=== PATIENT | female | born 1985 | race Caucasian/White ===

== ENCOUNTER 2016-08-14 18:48 | Emergency (ER) | payer SELFPAY ==
[~2016-08-14] VITALS: Ht 170.2 cm; Wt 68.0 kg
[2016-08-14 18:50] VITALS: BP 137/63; PULSE 76; RESP 16; TEMP 98.1; O2SAT 98
== END 2016-08-14 21:22 | disposition left against medical advice (07) ==
LOC: NED 18:48
DX: N64.4 Mastodynia (principal)
CPT/HCPCS: 99281

== ENCOUNTER 2017-01-25 21:59 | Emergency (ER) | payer MEDICAID ==
[~2017-01-25] VITALS: Ht 170.2 cm; Wt 69.5 kg
[2017-01-25 22:00] VITALS: BP 105/61; PULSE 71; RESP 16; TEMP 98.3; O2SAT 99
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
[2017-01-25] MEDS ORDERED: METR-1 PO (23:32)
[2017-01-25] MEDS ORDERED: metroNIDAZOLE 500 MG TAB PO ONE (23:45)
[2017-01-25 23:50] VITALS: BP 109/54
[2017-01-26 04:20] LABS: CHLAMYDIA PCR NOT DETECTED (NOT DETECT); NEISSERIA PCR NOT DETECTED (NOT DETECT)
== END 2017-01-25 23:50 | disposition home or self-care (01) ==
LOC: PHED 21:59
DX: L81.0 Postinflammatory hyperpigmentation (principal); N76.0 Acute vaginitis
CPT/HCPCS: 87210; 87491; 87591; 99284

== ENCOUNTER → 2017-11-04 | Outpatient (CLI) | payer MEDICAID, OTHER ==
[~2017-11-04] MED LIST: METR-1 PO
== END ==
LOC: HPND 08:35
PROVIDERS: ATTEND Obstetrics & Gynecology
DX: Z36.3 Encounter for antenatal screening for malformations (principal); O99.332 Smoking (tobacco) complicating pregnancy, second trimester
CPT/HCPCS: 76811

== ENCOUNTER 2017-11-29 16:43 | Observation (INO) | payer MEDICAID ==
[2017-11-29] MEDS ORDERED: ONDANSETRON HCL 4 MG/2 ML VIAL (17:36)
[2017-11-29] MEDS: LACTATED RINGER'S 1000 ML INJ 1,000 ML IV (17:45)
[2017-11-29] MEDS: ONDANSETRON HCL 4 MG/2 ML VIAL IV (17:46)
[2017-11-29] MEDS: METOCLOPRAMIDE HCL 10 MG/2 ML VIAL IV PUSH (17:48)
[2017-11-29 18:07] LABS: HEMATOCRIT 34.9 % (35.0-46.0); MEAN CELL VOLUME 89.6 FL (80.0-100.0); MEAN CORPUSCULAR HEMOGLOBIN 30.7 PG (27.0-34.0); MEAN CORPUSCULAR HGB CONC 34.3 % (32.0-36.0); MEAN PLATELET VOLUME 8.2 FL (7.0-11.0); PLATELET COUNT 278 TH/MM3 (150-450); RED CELL DISTRIBUTION WIDTH 14.1 % (11.6-17.2); REVIEW FLAG FINAL; WHITE BLOOD COUNT 22.9 TH/MM3 (4.0-11.0)
[2017-11-29 18:35] LABS: ALBUMIN 3.6 GM/DL (3.4-5.0); ANION GAP 12 MEQ/L (5-15); AST (GOT) 11 U/L (15-37); BICARBONATE 21.9 MEQ/L (21.0-32.0); BLOOD UREA NITROGEN 6 MG/DL (7-18); CALCIUM 9.2 MG/DL (8.5-10.1); CHLORIDE 106 MEQ/L (98-107); CREATININE 0.59 MG/DL (0.50-1.00); GLOMERULAR FILTRATION RATE 120 ML/MIN (>89); GLUCOSE,RANDOM 118 MG/DL (74-106); POTASSIUM 3.1 MEQ/L (3.5-5.1); SODIUM (NA) 140 MEQ/L (136-145)
[2017-11-29 18:36] LABS: ALT (GPT) 13 U/L (10-53)
[2017-11-29 18:39] LABS: ALKALINE PHOSPHATASE 70 U/L (45-117); TOTAL BILIRUBIN ADULT 0.2 MG/DL (0.2-1.0); TOTAL PROTEIN 7.9 GM/DL (6.4-8.2)
[2017-11-29] MEDS ORDERED: POTASSIUM CHLORIDE IV (18:55)
[2017-11-29] MEDS ORDERED: [UNRECOGNIZED DRUG - OTHER] IV (18:55)
[2017-11-29] MEDS ORDERED: ZOLPIDEM TARTRATE 5 MG TAB PO (19:00)
[2017-11-29] MEDS: SUCRALFATE 1 GM TAB PO (19:00)
[2017-11-29 19:09] LABS: AMORPHOUS SEDIMENT, URINE RARE; BILIRUBIN, URINE NEG (NEG); BLOOD, URINE NEG (NEG); COMMENT (UR) CULT NOT INDICATED; CULTURE IF INDICATED CULT NOT INDICATED; GLUCOSE,URINE TRACE mg/dL (NEG); KETONE, URINE 150 mg/dL (NEG); MUCUS URINE MANY /lpf (OCC); NITRITE,URINE NEG (NEG); SQUAMOUS EPITHELIAL CELL URINE 7 /hpf (0-5); URINE COLOR YELLOW (YELLW/STRAW); URINE LEUKOCYTE ESTERASE NEG (NEG)
[2017-11-29 19:28] LABS: AMPHETAMINE, URINE NEG (NEG); BARBITURATES, URINE NEG (NEG); BENZODIAZEPINE,URINE NEG (NEG); CANNABINOIDS, URINE POS (NEG); COCAINE, URINE NEG (NEG)
[2017-11-29] MEDS: POTASSIUM CHLORIDE INJ 40 MEQ in LACTATED RINGER'S 1000 ML INJ 1,000 ML IV (20:29)
[2017-11-29] MEDS: SODIUM CHLORIDE 0.9% FLUSH 10 ML FLUSH IV FLUSH ×2 (20:30→21:45)
[2017-11-29] MEDS: RANITIDINE HCL SYRUP 150 MG/10 ML UDC PO (21:00)
[2017-11-29] MEDS: FAMOTIDINE 20 MG TAB PO (21:00)
[2017-11-29] MEDS: LORazepam 2 MG/ML VIAL IV (21:45)
[2017-11-29] MEDS: FAMOTIDINE 20 MG/2 ML VIAL IV (21:45)
[2017-11-30] MEDS: POTASSIUM CHLORIDE INJ 40 MEQ in LACTATED RINGER'S 1000 ML INJ 1,000 ML IV (00:27)
[2017-11-30] MEDS: ONDANSETRON HCL 4 MG/2 ML VIAL IV PUSH ×2 (01:39→08:57)
[2017-11-30] MEDS: PROCHLORPERAZINE INJ 10 MG/2 ML VIAL IV (01:46)
[2017-11-30] MEDS: POTASSIUM CHLORIDE INJ 20 MEQ in LACTATED RINGER'S 1000 ML INJ 1,000 ML IV (01:46)
[2017-11-30 05:49] LABS: AUTOMATED NEUTROPHIL # 12.1 TH/MM3 (1.8-7.7); BASOPHIL % 0.1 % (0.0-2.0); HEMATOCRIT 28.7 % (35.0-46.0); HEMO FLAGS DIFF FINAL; HEMOGLOBIN 9.8 GM/DL (11.6-15.3); LYMPH % 11.1 % (9.0-44.0); LYMPHOCYTE # 1.6 TH/MM3 (1.0-4.8); MEAN CELL VOLUME 89.3 FL (80.0-100.0); MEAN CORPUSCULAR HEMOGLOBIN 30.4 PG (27.0-34.0); MEAN CORPUSCULAR HGB CONC 34.1 % (32.0-36.0); MEAN PLATELET VOLUME 8.1 FL (7.0-11.0); MONO % 5.5 % (0.0-8.0); MONOCYTE # 0.8 TH/MM3 (0-0.9); NEUT % 83.3 % (16.0-70.0); PLATELET COUNT 213 TH/MM3 (150-450); RED BLOOD COUNT 3.22 MIL/MM3 (4.00-5.30); RED CELL DISTRIBUTION WIDTH 13.8 % (11.6-17.2); WHITE BLOOD COUNT 14.5 TH/MM3 (4.0-11.0)
[2017-11-30 06:18] LABS: ANION GAP 10 MEQ/L (5-15); BICARBONATE 22.1 MEQ/L (21.0-32.0); BLOOD UREA NITROGEN 4 MG/DL (7-18); CALCIUM 8.3 MG/DL (8.5-10.1); CHLORIDE 109 MEQ/L (98-107); CREATININE 0.44 MG/DL (0.50-1.00); GLOMERULAR FILTRATION RATE 168 ML/MIN (>89); GLUCOSE,RANDOM 91 MG/DL (74-106); POTASSIUM 3.4 MEQ/L (3.5-5.1); SODIUM (NA) 141 MEQ/L (136-145)
[2017-11-30] MEDS: SODIUM CHLORIDE 0.9% FLUSH 10 ML FLUSH IV FLUSH (08:38)
[2017-11-30] MEDS: FAMOTIDINE 20 MG TAB PO (08:38)
== END 2017-11-30 12:35 | disposition home or self-care (01) ==
LOC: HOBED 16:43 → H2EA 18:55
DX: O99.612 Diseases of the digestive system complicating pregnancy, second trimester (principal); A08.4 Viral intestinal infection, unspecified; O99.282 Endocrine, nutritional and metabolic diseases complicating pregnancy, second trimester; E87.6 Hypokalemia; O26.892 Other specified pregnancy related conditions, second trimester; E86.0 Dehydration; O99.322 Drug use complicating pregnancy, second trimester; F12.988 Cannabis use, unspecified with other cannabis-induced disorder; Z3A.22 22 weeks gestation of pregnancy
CPT/HCPCS: 80048; 80053; 80307; 81001; 85025; 85027; 96361; 96365; 96366; 96375; 96376; 99285-25

== ENCOUNTER 2017-12-01 10:25 | Observation (INO) | payer MEDICAID ==
[~2017-12-01] VITALS: Ht 170.2 cm; Wt 74.4 kg
[2017-12-01] VITALS (12 sets, daily range): BP systolic 131–151; BP diastolic 67–81; PULSE 64–99; RESP 16–18; TEMP 98.4–98.5
[~2017-12-01 10:25] MED LIST changes: -METR-1 PO; +ZOFR4TAB3 SL
[2017-12-01] MEDS ORDERED: PREN1TAB45 PO (10:44)
[2017-12-01] MEDS: SODIUM CHLORIDE 0.9% FLUSH 10 ML FLUSH IV FLUSH SCH ×2 (11:00→21:00)
[2017-12-01] MEDS ORDERED: SODIUM CHLORIDE 0.9% FLUSH 10 ML FLUSH IV FLUSH PRN (11:00)
[2017-12-01] MEDS ORDERED: ACETAMINOPHEN 325 MG TAB PO PRN (11:00)
[2017-12-01] MEDS ORDERED: DEXT 5%-NACL 0.9% 1000 ML INJ 1,000 ML IV ONE (11:30)
[2017-12-01] MEDS ORDERED: ONDANSETRON HCL 4 MG/2 ML VIAL IV PUSH ONE (11:45)
--- NOTE | 2017-12-01 11:57 | HHI.HP ---
History & Physical H&P HPI Chief Complaint Nausea and vomiting Date Seen: December 01, 2017 Travel History International Travel<30 Days: No Contact w/Intl Traveler<30Days: No Known Affected Area: No History of Present Illness HPI The patient is a 32 year old at 22/1 weeks gestation who presents to OB triage due to nausea and vomiting. She was recently admitted to antepartum here from 11/29 to 11/30 with similar issues and discharged home yesterday after tolerating a regular diet with improvement of her nausea and vomiting. She also had hypokalemia at that time due to her vomiting. She states she felt ok at home yesterday and did not have any nausea or vomiting, although her appetite was still decreased. She states she only ate a popsicle yesterday evening for her dinner. She states she woke up early this morning around 05:30 with nausea and since then has had multiple episodes of emesis appearing dark brown. She reports not eating anything thus far today. She does endorse subjective chills. Reports diffuse abdominal pain, dull in nature and persistent. Denies any sharp abdominal pain, cramps, diarrhea. She otherwise denies leakage of fluid or contractions. Endorses + movements. Para: 2 : 3 History Past Medical History Medical History: Denies Significant Hx Obstetric History Obstetric History Spontaneous vaginal delivery 2 Past Surgical History Narrative Surgical Appendectomy Facial reconstruction Family History Family History: Negative Social History Alcohol Use: No Tobacco Use: No Substance Abuse: Yes (Admits to smoking THC 3-5 times daily prior to , at least 2-3 times daily during her ) Allergies-Medications (Allergen,Severity, Reaction): Coded Allergies: promethazine (Unverified Allergy, Severe, SHAKES, 11/29/17) ketorolac (Unverified Adverse Reaction, Severe, SHAKES, 11/29/17) Home Meds Active Scripts Ondansetron Odt (Zofran Odt) 4 Mg Tab, 4 MG SL Q6HR Y for Nausea/Vomiting, #12 TAB 1 Refill Prov:Luther Sandhu MD R2 11/30/17 Reported Medications Vit,Calc76/Iron/Folic (Pnv 29-1 Tablet) 29 Mg Iron-1 Mg Tablet, 1 TAB PO DAILY 12/01/17 Discontinued Scripts Metronidazole (Flagyl) 500 Mg Tab, 500 MG PO TID for Infection for 7 Days, TAB 0 Refills Prov:Luisito Prater MD 01/25/17 Review of Systems General / Constitutional: Chills HENT: No: Headaches Respiratory: No: Cough, Short of Breath Gastrointestinal: Nausea, Vomiting, Abdominal Pain, Loss of Appetite, No: Diarrhea Genitourinary: No: Dysuria, Hematuria, Discharge, Vaginal Bleeding Physical Exam Narrative GENERAL: Well-nourished, well-developed patient. SKIN: Warm and dry. HEAD: Normocephalic and atraumatic. EYES: No scleral icterus. No injection or drainage. ENT: No nasal drainage noted. Mucous membranes pink. Airway patent. NECK: Supple, trachea midline. No JVD. CARDIOVASCULAR: Regular rate and rhythm without murmurs, gallops, or rubs. RESPIRATORY: Breath sounds equal bilaterally. No accessory muscle use. ABDOMEN/GI: Abdomen soft, non-tender, bowel sounds present, no rebound, no guarding Gravid to 22 weeks size GENITOURINARY: External Genitalia: [-] Cervix: [-] Dilatation: [-] Effacement: [-] Station: [-] Presentation: [-] Membranes: [-] Uterine Contractions: [-] FHT's: Category: [-] Baseline: 130s Reactive: [-] Variability: moderate Decels: none noted EXTREMITIES: No cyanosis or edema. BACK: Nontender without obvious deformity. No CVA tenderness. NEUROLOGICAL: Awake and alert. Motor and sensory grossly within normal limits. Normal speech. Data Data Vital Signs Reviewed: Yes [facility] Medical Record Reviewed: Yes Plan 32 year old at 22/1 weeks gestation being evaluated due to nausea and multiple episodes of vomiting. 1. Nausea and vomiting - Check labs to include cbc, cmp, mg, amylase and lipase, UA - Will give 1L bolus of D5-NS - Zofran 8 mg IV x1 now - Continue with Reglan 10 mg IV q6h makayla alternated with Zofran 4 mg IV q6h - Liquid diet for now - Monitor vitals q4h - Supplement electrolytes as needed 2. IUP - FHT reassuring, mod variability - No contractions. No reports of LOF or VB - FHTs q shift dw Luther Joy MD R2 December 01, 2017 11:57
[2017-12-01 12:30] LABS: AMORPHOUS SEDIMENT, URINE FEW; BACTERIA, URINE RARE /hpf; BILIRUBIN, URINE NEG (NEG); BLOOD, URINE NEG (NEG); GLUCOSE,URINE NEG (NEG); KETONE, URINE 150 mg/dL (NEG); MUCUS URINE MANY /lpf (OCC); NITRITE,URINE NEG (NEG); PH, URINE 7.5 (5.0-8.5); SQUAMOUS EPITHELIAL CELL URINE 4 /hpf (0-5); URINE COLOR YELLOW (YELLW/STRAW); URINE LEUKOCYTE ESTERASE NEG (NEG)
[2017-12-01 12:37] LABS: AUTOMATED NEUTROPHIL # 16.8 TH/MM3 (1.8-7.7); BASOPHIL % 0.2 % (0.0-2.0); HEMATOCRIT 33.9 % (35.0-46.0); HEMOGLOBIN 11.5 GM/DL (11.6-15.3); LYMPH % 5.7 % (9.0-44.0); LYMPHOCYTE # 1.1 TH/MM3 (1.0-4.8); MEAN CELL VOLUME 90.2 FL (80.0-100.0); MEAN CORPUSCULAR HEMOGLOBIN 30.6 PG (27.0-34.0); MEAN CORPUSCULAR HGB CONC 33.9 % (32.0-36.0); MEAN PLATELET VOLUME 8.7 FL (7.0-11.0); MONO % 2.5 % (0.0-8.0); MONOCYTE # 0.5 TH/MM3 (0-0.9); NEUT % 91.6 % (16.0-70.0); PLATELET COUNT 263 TH/MM3 (150-450); RED BLOOD COUNT 3.76 MIL/MM3 (4.00-5.30); WHITE BLOOD COUNT 18.4 TH/MM3 (4.0-11.0)
[2017-12-01] MEDS ORDERED: ONDANSETRON INJ 8 MG in DEXTROSE 5% IN WATER INJ 50 ML IV PUSH ONE ×2 (13:00)
[2017-12-01] MEDS ORDERED: THIAMINE HCL 200 MG/2 ML VIAL IM ONE (13:15)
[2017-12-01] MEDS: POTASSIUM CHLOR 10 MEQ PREMIX 100 ML IV SCH ×3 (13:22→15:59)
[2017-12-01 14:17] LABS: ALBUMIN 3.3 GM/DL (3.4-5.0); AST (GOT) 18 U/L (15-37); BICARBONATE 23.3 MEQ/L (21.0-32.0); BLOOD UREA NITROGEN 3 MG/DL (7-18); CALCIUM 8.5 MG/DL (8.5-10.1); CHLORIDE 104 MEQ/L (98-107); CREATININE 0.52 MG/DL (0.50-1.00); GLOMERULAR FILTRATION RATE 138 ML/MIN (>89); GLUCOSE,RANDOM 125 MG/DL (74-106); MAGNESIUM 1.8 MG/DL (1.5-2.5); SODIUM (NA) 139 MEQ/L (136-145)
[2017-12-01 14:18] LABS: ALT (GPT) 16 U/L (10-53)
[2017-12-01 14:20] LABS: ALKALINE PHOSPHATASE 64 U/L (45-117); TOTAL BILIRUBIN ADULT 0.3 MG/DL (0.2-1.0); TOTAL PROTEIN 7.3 GM/DL (6.4-8.2)
[2017-12-01] MEDS ORDERED: METOCLOPRAMIDE HCL 10 MG/2 ML VIAL IV PUSH SCH (14:45)
[2017-12-01] MEDS ORDERED: MAGNESIUM SULFATE 1 GM PREMIX 100 ML IV ONE (16:00)
[2017-12-01] MEDS ORDERED: THIAMINE INJ 100 MG in SODIUM CHLORIDE 0.9% INJ 100 ML IV ONE (17:00)
[2017-12-01] MEDS ORDERED: ZOLPIDEM TARTRATE 5 MG TAB PO PRN (17:15)
[2017-12-01] MEDS: ONDANSETRON HCL 4 MG/2 ML VIAL IV PUSH SCH ×2 (17:46→23:54)
[2017-12-01] MEDS: METOCLOPRAMIDE HCL 10 MG/2 ML VIAL IV PUSH SCH (21:00)
[2017-12-01] MEDS ORDERED: LORazepam 2 MG/ML VIAL IM ONE (21:50)
[2017-12-02] VITALS (8 sets, daily range): BP systolic 110–138; BP diastolic 47–74; PULSE 79–98; RESP 16–18; TEMP 98–98.7
[2017-12-02] MEDS ORDERED: LACTATED RINGER'S 1000 ML INJ 1,000 ML IV SCH (00:45)
[2017-12-02] MEDS: METOCLOPRAMIDE HCL 10 MG/2 ML VIAL IV PUSH SCH ×3 (03:11→15:00)
[2017-12-02] MEDS: ONDANSETRON HCL 4 MG/2 ML VIAL IV PUSH SCH ×2 (05:45→11:45)
[2017-12-02 06:27] LABS: BICARBONATE 23.2 MEQ/L (21.0-32.0); CALCIUM 7.9 MG/DL (8.5-10.1); CREATININE 0.43 MG/DL (0.50-1.00)
[2017-12-02] MEDS ORDERED: MULTIVIT/MIN/PREN/FOL AC/IRON PRENATAL TAB PO SCH (09:00)
[2017-12-02] MEDS: SODIUM CHLORIDE 0.9% FLUSH 10 ML FLUSH IV FLUSH SCH (09:00)
[2017-12-02] MEDS: diphenhydrAMINE HCL 50 MG/ML VIAL IV PUSH SCH ×2 (09:45→15:45)
[2017-12-02] MEDS ORDERED: CALCIUM GLUCONATE INJ 2 GM in SODIUM CHLORIDE 0.9% INJ 100 ML IV ONE (10:00)
[2017-12-02] MEDS: POTASSIUM CHLOR 10 MEQ PREMIX 100 ML IV SCH ×4 (11:00→15:00)
--- NOTE | 2017-12-02 11:03 | PD.OB.ANTE ---
Subjective Interval History No acute events overnight. Mother at bedside. Patient reports that she is doing a little better this morning. She reports that she is still little nauseated. She denies chest pain, shortness of breath, abdominal pain, and fevers. Antepartum ROS: Denies: New complaints, Loss of fluid, Vaginal bleeding, movement normal, Contractions, Other Objective Vital Signs Vital Signs Date Time Temp Pulse Resp B/P (MAP) Pulse Ox O2 Delivery O2 Flow Rate FiO2 12/02/17 09:57 98.7 88 18 132/57 (82) 12/02/17 00:00 98.0 18 12/01/17 23:56 81 140/67 (91) 12/01/17 21:00 144/67 (92) 12/01/17 21:00 78 12/01/17 20:55 81 18 151/81 (104) 12/01/17 20:55 98.5 12/01/17 16:53 99 131/69 (89) 12/01/17 16:52 98.4 16 12/01/17 11:20 69 12/01/17 11:15 70 12/01/17 11:10 67 12/01/17 11:05 64 12/01/17 11:00 68 Lab & Micro Results Test 12/01/17 12:10 12/01/17 13:33 12/02/17 04:35 White Blood Count 18.4 TH/MM3 Red Blood Count 3.76 MIL/MM3 Hemoglobin 11.5 GM/DL Hematocrit 33.9 % Mean Corpuscular Volume 90.2 FL Mean Corpuscular Hemoglobin 30.6 PG Mean Corpuscular Hemoglobin Concent 33.9 % Red Cell Distribution Width 14.0 % Platelet Count 263 TH/MM3 Mean Platelet Volume 8.7 FL Neutrophils (%) (Auto) 91.6 % Lymphocytes (%) (Auto) 5.7 % Monocytes (%) (Auto) 2.5 % Eosinophils (%) (Auto) 0.0 % Basophils (%) (Auto) 0.2 % Neutrophils # (Auto) 16.8 TH/MM3 Lymphocytes # (Auto) 1.1 TH/MM3 Monocytes # (Auto) 0.5 TH/MM3 Eosinophils # (Auto) 0.0 TH/MM3 Basophils # (Auto) 0.0 TH/MM3 CBC Comment DIFF FINAL Differential Comment Blood Urea Nitrogen 3 MG/DL 4 MG/DL Creatinine 0.52 MG/DL 0.43 MG/DL Random Glucose 125 MG/DL 86 MG/DL Total Protein 7.3 GM/DL Albumin 3.3 GM/DL Calcium Level 8.5 MG/DL 7.9 MG/DL Magnesium Level 1.8 MG/DL 2.0 MG/DL Alkaline Phosphatase 64 U/L Aspartate Amino Transf (AST/SGOT) 18 U/L Alanine Aminotransferase (ALT/SGPT) 16 U/L Total Bilirubin 0.3 MG/DL Sodium Level 139 MEQ/L 139 MEQ/L Potassium Level 3.1 MEQ/L 2.8 MEQ/L Chloride Level 104 MEQ/L 106 MEQ/L Carbon Dioxide Level 23.3 MEQ/L 23.2 MEQ/L Anion Gap 12 MEQ/L 10 MEQ/L Estimat Glomerular Filtration Rate 138 ML/MIN 172 ML/MIN Amylase Level 78 U/L Lipase 106 U/L Physical Exam GENERAL: Well-nourished, well-developed patient. CARDIOVASCULAR: Regular rate and rhythm without murmurs, gallops, or rubs. RESPIRATORY: Breath sounds equal bilaterally. No accessory muscle use. ABDOMEN/GI: Abdomen soft, non-tender. FHT's: 140s Via Doppler performed by nurse. EXTREMITIES: No cyanosis or edema, non-tender, without signs of DVT. Assessment and Plan Assessment and Plan 32 year old at 22/1 weeks gestation being evaluated due to nausea and multiple episodes of vomiting. 1. Nausea and vomiting -Potassium decreased from 3.1-2.8, replace with IV potassium chloride -Calcium decreased to 7.9 today, replace with 2 g IV calcium gluconate -Magnesium 2.0 -Continue with Reglan 10 mg IV q6h makayla alternated with Zofran 4 mg IV q6h -Add Benadryl 50 mg IV push q6hr and Thorazine 25mg IV push q5h -Repeat BMP tomorrow - Liquid diet for now - Monitor vitals q4h 2. IUP - heart tones 140s via Doppler performed by nurse - FHTs q shift sdw Mamie Reyes MD R1 December 02, 2017 11:03
[2017-12-02 23:59] LABS: HEMATOCRIT 28.1 % (35.0-46.0); HEMOGLOBIN 9.9 GM/DL (11.6-15.3); MEAN CELL VOLUME 89.9 FL (80.0-100.0); MEAN CORPUSCULAR HEMOGLOBIN 31.6 PG (27.0-34.0); MEAN CORPUSCULAR HGB CONC 35.1 % (32.0-36.0); MEAN PLATELET VOLUME 7.5 FL (7.0-11.0); PLATELET COUNT 189 TH/MM3 (150-450); RED BLOOD COUNT 3.13 MIL/MM3 (4.00-5.30); WHITE BLOOD COUNT 9.3 TH/MM3 (4.0-11.0)
[2017-12-03] VITALS (8 sets, daily range): BP systolic 129–135; BP diastolic 56–79; PULSE 82–107; RESP 14–18; TEMP 98.3
[2017-12-03] MEDS ORDERED: LACTATED RINGER S IV SCH (00:30)
[2017-12-03] MEDS ORDERED: POTASSIUM CHLORIDE IV SCH (00:30)
[2017-12-03 06:17] LABS: BICARBONATE 21.3 MEQ/L (21.0-32.0); CALCIUM 7.7 MG/DL (8.5-10.1); CREATININE 0.33 MG/DL (0.50-1.00)
--- NOTE | 2017-12-03 08:45 | PD.OB.ANTE ---
Subjective Interval History Patient seen and examined this morning. Afebrile, vitals stable. She reports continued nausea. She states she has not attempted progressing her diet due to her nausea. Antepartum ROS: Reports: movement normal, Denies: Loss of fluid, Vaginal bleeding Objective Vital Signs Vital Signs Date Time Temp Pulse Resp B/P (MAP) Pulse Ox O2 Delivery O2 Flow Rate FiO2 12/03/17 04:00 18 12/03/17 03:52 87 129/56 (80) 12/03/17 00:00 18 12/02/17 23:47 80 136/74 (94) 12/02/17 20:00 18 12/02/17 20:00 98.2 12/02/17 19:49 79 110/47 (68) 12/02/17 17:44 16 12/02/17 12:28 16 12/02/17 12:20 98 138/63 (88) 12/02/17 09:57 98.7 88 18 132/57 (82) Lab & Micro Results Test 12/02/17 23:44 12/03/17 04:59 White Blood Count 9.3 TH/MM3 Red Blood Count 3.13 MIL/MM3 Hemoglobin 9.9 GM/DL Hematocrit 28.1 % Mean Corpuscular Volume 89.9 FL Mean Corpuscular Hemoglobin 31.6 PG Mean Corpuscular Hemoglobin Concent 35.1 % Red Cell Distribution Width 14.0 % Platelet Count 189 TH/MM3 Mean Platelet Volume 7.5 FL Potassium Level 2.8 MEQ/L 3.3 MEQ/L Blood Urea Nitrogen 3 MG/DL Creatinine 0.33 MG/DL Random Glucose 74 MG/DL Calcium Level 7.7 MG/DL Sodium Level 139 MEQ/L Chloride Level 106 MEQ/L Carbon Dioxide Level 21.3 MEQ/L Anion Gap 12 MEQ/L Estimat Glomerular Filtration Rate 234 ML/MIN Physical Exam GENERAL: Well-nourished, well-developed patient. CARDIOVASCULAR: Regular rate and rhythm without murmurs, gallops, or rubs. RESPIRATORY: Breath sounds equal bilaterally. No accessory muscle use. ABDOMEN/GI: Abdomen soft, non-tender. FHT's: 152 via Doppler performed by nurse. EXTREMITIES: No cyanosis or edema, non-tender, without signs of DVT. Assessment and Plan Assessment and Plan 32 year old at 22/3 weeks gestation admitted to antepartum due to recurrent nausea, vomiting, dehydration, and hypokalemia. 1. Nausea and vomiting - Continue IV potassium chloride for K supplementation - Magnesium 2.0 - Patient started on methylprednisolone 16 mg po bid for additional three days then plan to taper down - Continue with Reglan 10 mg IV q6h makayla alternated with Zofran 4 mg IV q6h - Benadryl 50 mg IV push q6hr - Discontinue thorazine - Repeat BMP tomorrow - Trial regular diet, patient advised to trial very slowly as tolerated, discussed specific foods to attempt first - Monitor vitals q4h 2. IUP - heart tones 152s via Doppler performed by nurse - FHTs q shift sdw Luther Weeks MD R2 December 03, 2017 08:45
[2017-12-03] MEDS ORDERED: THIAMINE INJ 100 MG in SODIUM CHLORIDE 0.9% INJ 100 ML IV SCH (09:00)
[2017-12-03] MEDS: SODIUM CHLORIDE 0.9% FLUSH 10 ML FLUSH IV FLUSH SCH ×2 (09:00→19:43)
[2017-12-03] MEDS ORDERED: POTASSIUM CHLORIDE 25 MEQ EFFERVESCENT TAB PO ONE ×2 (09:30→14:30)
[2017-12-03] MEDS: ONDANSETRON ODT 4 MG TAB PO PRN ×3 (11:10→21:26)
[2017-12-03] MEDS ORDERED: PANTOPRAZOLE SOD 40 MG DELAYED RELEASE TAB PO SCH (12:00)
--- NOTE | 2017-12-03 12:50 | MB ---
cc: Bertrand Cavazos MD,Bertrand Smith MD, MD DATE: 12/03/2017 REASON FOR CONSULTATION: Nausea, vomiting. HISTORY OF PRESENT ILLNESS: Ms. Nick is a 32-year-old lady who is 22 weeks , basically presents with complaints of nausea, vomiting and inability to keep food down. She was here in the hospital about a week ago as well for similar complaints. At that time, she was managed conservatively, treated for hypokalemia and discharged. She admits to marijuana use. She says tried to smoke some marijuana yesterday to try to see if this helps with her nausea and vomiting, but it did not and her symptoms got worse, so she came to the hospital. She has no other complaints. There is no bleeding, no diarrhea, no abdominal pain. PAST MEDICAL HISTORY: None given. PAST SURGICAL HISTORY: Appendectomy, facial surgery. FAMILY HISTORY: Noncontributory. SOCIAL HISTORY: No tobacco, no alcohol. Admits to marijuana use 2 to 3 times daily. ALLERGIES: PROMETHAZINE AND KETOROLAC. CURRENT MEDICINES: Zofran IV steroids. REVIEW OF SYSTEMS: Except for nausea, no other complaints at this time. PHYSICAL EXAMINATION: GENERAL: Reveals a well-nourished lady in no apparent distress. VITAL SIGNS: Vitals are stable. HEAD AND NECK: Anicteric sclerae. CHEST: Bilateral air entry with rales. ABDOMEN: Soft, some tenderness in the right upper quadrant. No guarding, no rigidity. LICENSED INSURANCE AGENT: The exam is nonfocal. RECTAL: Deferred at this time. LABORATORY DATA: Reveal a hemoglobin of 9.9. Lipase 106. Liver function tests are normal. The patient is hypokalemic with a potassium of 3.3. IMPRESSION: Nausea, vomiting. RECOMMENDATIONS: Nausea and vomiting could be related to , could be related to Marijuana use. I have recommended an ultrasound of the gallbladder to rule out cholelithiasis. Add Prilosec 40 mg daily to her regimen. She is advised against using marijuana. Obviously, she is 22 weeks . This precludes any invasive testing at this time. This has been discussed with Dr. Shipley and Dr. Mira Solitario. We will follow. Thank you for this referral. MD DANAY Garvin , 12:21 PM , 12:49 PM
[2017-12-03] MEDS: PANTOPRAZOLE SOD 40 MG DELAYED RELEASE TAB PO SCH (16:47)
[2017-12-03] MEDS: MULTIVIT/MIN/PREN/FOL AC/IRON PRENATAL TAB PO SCH (16:47)
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
[2017-12-03] MEDS: LACTATED RINGER'S 1000 ML INJ 1,000 ML IV SCH (20:31)
[2017-12-04] MEDS ORDERED: AMMONIA AROMATIC INHALANT 0.33 ML ONE (01:01)
[2017-12-04 02:00] VITALS: RESP 14; TEMP 97.9
[2017-12-04] MEDS: ONDANSETRON ODT 4 MG TAB PO PRN (02:01)
[2017-12-04] MEDS: LACTATED RINGER'S 1000 ML INJ 1,000 ML IV SCH (04:34)
[2017-12-04 05:19] LABS: BICARBONATE 20.6 MEQ/L (21.0-32.0); CALCIUM 7.8 MG/DL (8.5-10.1); CREATININE 0.34 MG/DL (0.50-1.00)
[2017-12-04] MEDS ORDERED: ONDANSETRON ODT 4 MG TAB PO PRN (06:15)
[2017-12-04 06:38] VITALS: BP 141/72; PULSE 91
[2017-12-04] MEDS: SODIUM CHLORIDE 0.9% FLUSH 10 ML FLUSH IV FLUSH SCH (07:09)
[2017-12-04] MEDS: MULTIVIT/MIN/PREN/FOL AC/IRON PRENATAL TAB PO SCH (07:14)
--- NOTE | 2017-12-04 08:11 | PD.OB.ANTE ---
Subjective Diagnosis: (1) with 22 completed weeks gestation (2) Hyperemesis gravidarum with dehydration Interval History Patient seen and examined this morning. Afebrile, vitals stable. She reports nausea at 3am this morning and none since. She had vomiting with dinner last night, which was a turkey sandwich. Breakfast is pending this morning. Antepartum ROS: Reports: movement normal, Denies: New complaints, Loss of fluid, Vaginal bleeding, Contractions Objective Vital Signs Vital Signs Date Time Temp Pulse Resp B/P (MAP) Pulse Ox O2 Delivery O2 Flow Rate FiO2 12/04/17 06:38 91 141/72 (95) 12/04/17 02:00 97.9 12/04/17 02:00 14 12/03/17 20:22 98.3 14 12/03/17 20:19 82 132/79 (96) 12/03/17 14:05 107 132/61 (84) 12/03/17 10:00 16 12/03/17 09:44 89 135/64 (87) Lab & Micro Results Test 12/03/17 21:35 12/04/17 04:10 Urine Opiates Screen NEG Urine Barbiturates Screen NEG Urine Amphetamines Screen NEG Urine Benzodiazepines Screen NEG Urine Cocaine Screen NEG Urine Cannabinoids Screen POS Blood Urea Nitrogen 3 MG/DL Creatinine 0.34 MG/DL Random Glucose 82 MG/DL Calcium Level 7.8 MG/DL Sodium Level 137 MEQ/L Potassium Level 3.2 MEQ/L Chloride Level 104 MEQ/L Carbon Dioxide Level 20.6 MEQ/L Anion Gap 12 MEQ/L Estimat Glomerular Filtration Rate 226 ML/MIN Date/Time Source Procedure Growth Status 12/03/17 14:50 Other Herpes Simplex Virus Culture Pending Received Physical Exam GENERAL: Well-nourished, well-developed patient. CARDIOVASCULAR: Regular rate and rhythm without murmurs, gallops, or rubs. RESPIRATORY: Breath sounds equal bilaterally. No accessory muscle use. ABDOMEN/GI: Abdomen soft, non-tender. Normal bowel sounds. Nontender. Gravid uterus. FHT's: Dopplers performed by nurse 150s EXTREMITIES: No cyanosis or edema, non-tender, without signs of DVT. Assessment and Plan Assessment and Plan 32 year old at 22/4 weeks gestation admitted to antepartum due to recurrent nausea, vomiting, dehydration, and hypokalemia. 1. Nausea and vomiting - Continue IV potassium chloride for K supplementation - Magnesium 2.0 - Patient started on methylprednisolone 16 mg po bid for additional three days then plan to taper down - Continue with Reglan 10 mg IV q6h makayla alternated with Zofran 4 mg IV q6h - Benadryl 50 mg IV push q6hr - Discontinued thorazine - Repeat BMP showing K 3.2, replete with 30meq KCl this morning - Continue trial regular diet, patient advised to trial very slowly as tolerated , discussed specific foods to attempt first - Monitor vitals q4h - GI consulted: RUQ US ordered and wnl. Recommended and started Prilosec 40mg daily. Appreciate recs 2. IUP - heart tones 150s via Doppler performed by nurse - FHTs q shift Disposition: anticipate patient to go home today or tomorrow. Still having nausea and vomiting. wilda Irby,Cyndie Hahn MD R2 December 04, 2017 08:11
[2017-12-04] MEDS ORDERED: POTASSIUM CHLORIDE 10 MEQ CONTROLLED RELEASE TAB PO ONE (08:15)
[2017-12-04] MEDS ORDERED: ONDA4TAB7 PO (10:16)
[2017-12-04] MEDS ORDERED: PANT40TA3 PO (10:16)
[2017-12-04] MEDS ORDERED: [UNRECOGNIZED DRUG - CODE] PO (10:16)
[2017-12-04] MEDS ORDERED: METO10TA PO (10:20)
--- NOTE | 2017-12-04 10:20 | HHI.DCPOC ---
Discharge Care Plan Diagnosis: (1) with 22 completed weeks gestation (2) Hyperemesis gravidarum with dehydration Report Symptoms to Your Doctor -Temperature above 100.5 degrees -Redness, of incision or excessive or foul smelling drainage -Unusual pain or calf pain -Increased vaginal bleeding -Painful or difficulty urinating -Feelings of extreme sadness or anxiety after 2 weeks Goals to Promote Your Health * To prevent worsening of your condition and complications * To maintain your health at the optimal level Directions to Meet Your Goals Take your medications as prescribed Follow your dietary instruction Follow activity as directed Ensure plenty of rest for recovery Drink fluids for hydration Keep your appointments as scheduled Take your immunizations and boosters as scheduled If your symptoms worsen call your PCP, if no PCP go to Urgent Care Center or Emergency Room Smoking is Dangerous to Your Health. Avoid second hand smoke Call the 24-hour crisis hotline for domestic abuse at Cyndie Irby MD R2 December 04, 2017 10:20
[2017-12-04] MEDS: PANTOPRAZOLE SOD 40 MG DELAYED RELEASE TAB PO SCH (10:41)
== END 2017-12-04 11:11 | disposition home or self-care (01) ==
LOC: HOBED 10:25 → H2EA 11:39
PROVIDERS: ADMIT Obstetrics & Gynecology; ATTEND Obstetrics & Gynecology
DX: O21.1 Hyperemesis gravidarum with metabolic disturbance (principal); E86.0 Dehydration; O99.322 Drug use complicating pregnancy, second trimester; F12.90 Cannabis use, unspecified, uncomplicated; Z3A.22 22 weeks gestation of pregnancy
CPT/HCPCS: 76705; 76811; 80048; 80053; 80307; 81001; 82150; 83690; 83735; 84132; 85025; 85027; 87255; 96361; 96365; 96366; 96375; 96376; 99285; G0378; G0481; J0610; J2060; J2405; J2765; J3230; J3411; J3475; J3480; J7042; J7120; J7509

== ENCOUNTER → 2017-12-30 | Outpatient (CLI) | payer MEDICAID ==
[~2017-12-30] MED LIST changes: +METO10TA PO; +ONDA4TAB7 PO; +PANT40TA3 PO; +PREN1TAB45 PO; -ZOFR4TAB3 SL; +[UNRECOGNIZED DRUG - CODE] PO
== END ==
LOC: HPND 12:02
PROVIDERS: ATTEND Obstetrics & Gynecology
DX: O35.1XX0 Maternal care for (suspected) chromosomal abnormality in fetus, not applicable or unspecified (principal); O35.8XX0 Maternal care for other (suspected) fetal abnormality and damage, not applicable or unspecified; O99.89 Other specified diseases and conditions complicating pregnancy, childbirth and the puerperium
CPT/HCPCS: 76816

== ENCOUNTER 2018-04-12 05:12 | Inpatient (IN) ==
[2018-04-12] MEDS ORDERED: fentaNYL Citrate Inj 100 MCG/2 ML Ampul IV.PUSH PRN ×2 (06:10)
[2018-04-12] MEDS ORDERED: ceFAZolin Inj 2,000 MG in Sodium Chlor 0.9% Inj 80 ML IV.SIG ONE (06:10)
[2018-04-12] MEDS ORDERED: Sod Chloride 0.9% Inj 1,000 ML IV.CONT PRN (06:10)
[2018-04-12] MEDS ORDERED: Sodium Chlor 0.9% Inj 500 ML IV.SIG PRN (06:10)
[2018-04-12] MEDS ORDERED: Naloxone Inj 0.4 MG/ML Vial IV.PUSH PRN ×2 (06:10→18:17)
[2018-04-12] MEDS ORDERED: Oxytocin 30 Units/500ml Premix 30 UNITS/500 ML BAG IV.SIG ONE (06:10)
[2018-04-12] MEDS ORDERED: Citric Acid/Sodium Citrate Liq 30 ML UDC PO SCH (06:15)
--- NOTE | 2018-04-12 06:26 | P.HPOB ---
History of Present Illness Primary Care Physician: care at [facility] Chief Complaint: Presents for postdates induction of labor History of Present Illness: 32-year-old EDC 04/05/2018 EGA 40+ weeks presents for postdates induction of labor Weeks Gestation:: 40 Para: 2 : 4 - Inpatient Certification I certify that the inpatient services were ordered in accordance with Medicare regulations governing the order. This includes certification that hospital inpatient services are reasonable and necessary and in the case of services not specified as inpatient-only under 42 CFR 419.22(n), that they are appropriately provided as inpatient services in accordance to with the 2-midnight benchmark under 43 CFR 412.3(e) Estimated Total Length of Stay (Days): 3 Plans for Post Hospital Care: Home Review of Systems All other systems reviewed negative except as stated in HPI [facility] - Medical History Medical History: Medical History (Last Updated 04/12/18 @ 06:23 by Chery Bain MD) Chlamydia infection affecting HPV test positive Post-dates Tobacco use affecting , antepartum - Alcohol History How Often Do You Have a Drink Containing Alcohol: Never - Substance Use History Substance History: No History of Abuse - Travel History History of Recent Travel: No Medications and Allergies Active Medications: Active Medications Citric Acid/Sodium Citrate (Sodium Citrate/Citric Acid Liq) 30 ml PO [employer] [facility] Stop: 04/16/18 06:14 Fentanyl Citrate (Fentanyl Inj) 50 mcg IV.PUSH Q1H PRN PRN Reason: Pain Scale 3 - 5 Fentanyl Citrate (Fentanyl Inj) 100 mcg IV.PUSH Q1H PRN PRN Reason: PAIN SCALE 6 TO 10 Cefazolin Sodium 2,000 mg/ (Sodium Chloride) 100 mls @ 200 mls/hr IV.SIG Q8HR ONE Stop: 04/12/18 06:39 Lactated Ringer's (Lr 1000 Ml Inj) 1,000 mls @ 125 mls/hr IV.CONT .Q8H [facility] Lactated Ringer's (Lr 1000 Ml Inj) 1,000 mls @ 3,000 mls/hr IV.SIG UNSCH PRN PRN Reason: compromise or epidural Sodium Chloride (Ns Inj) 500 mls @ 1,000 mls/hr IV.SIG UNSCH PRN PRN Reason: SEE LABEL COMMENTS Sodium Chloride (Ns Inj) 1,000 mls @ 100 mls/hr IV.CONT .Q10H PRN PRN Reason: SEE LABEL COMMENTS Oxytocin (Pitocin 30 Units/Ns 500 Ml Premix) 30 units in 500 mls @ 999 mls/hr IV.SIG BOLUS ONE Stop: 04/12/18 06:40 Lidocaine HCl (Xylocaine 1% Inj) 0.1 ml I-DERMAL PRN PRN PRN Reason: For IV start Stop: 04/15/18 06:09 Lidocaine HCl (Xylocaine 1% Inj) 10 ml INFILTRATN PRN PRN PRN Reason: For episiotomy repair Stop: 04/14/18 06:09 Mineral Oil (Muri-Lube Oil) 10 ml TOPICAL PRN PRN PRN Reason: PRN perineal massage Naloxone HCl (Narcan Inj) 0.1 mg IV.PUSH Q2M PRN PRN Reason: for opiate reversal Sodium Chloride (Ns Flush) 2 ml IV.FLUSH PRN PRN PRN Reason: FLUSH AFTER USING IV ACCESS Sodium Chloride (Ns Flush) 2 ml IV.FLUSH BID PATRICK Allergies Allergy/AdvReac Type Severity Reaction Status Date / Time promethazine Allergy Severe SHAKES Verified 04/12/18 06:19 ketorolac AdvReac Severe SHAKES Verified 04/12/18 06:19 Home Medications Medication Instructions Recorded Confirmed Type No Known Home Medications 04/12/18 04/12/18 History Exam Vital signs: Vital Signs 04/12/18 05:40 Pulse Rate 78 Respiratory Rate 16 Blood Pressure 132/71 Intake & Output 04/11/18 04/11/18 04/12/18 06:59 18:59 06:59 Weight 81.193 kg - Constitutional no acute distress - Routine HEENT Exam Head: Present: normocephalic Eye: Present: PERRL - Routine Neck Exam Present: supple - Routine Respiratory Exam Present: CTA bilaterally - Routine Cardiovascular Exam Present: RRR - Routine Abdominal Exam Present: soft - Routine Exam Perineum Description: Intact Comments: Vaginal exam cervix is 2 cm dilated 50% effaced midposition -2 station Results - Labs Group B Strep: Positive (Documented in chart) Caprini VTE Risk Assessment Caprini VTE Risk Assessment: No/Low Risk (score <= 1) Caprini Risk Assessment Model: Point Value = 1 Point Value = 2 Point Value = 3 Point Value = 5 Age 41-60 Minor surgery BMI > 25 kg/m2 Swollen legs Varicose veins or History of unexplained or recurrent spontaneous Oral contraceptives or hormone replacement Sepsis (< 1 month) Serious lung disease, including pneumonia (< 1 month) Abnormal pulmonary function Acute myocardial infarction Congestive heart failure (< 1 month) History of inflammatory bowel disease Medical patient at bed rest Age 61-74 Arthroscopic surgery Major open surgery (> 45 min) Laparoscopic surgery (> 45 min) Malignancy Confined to bed (> 72 hours) Immobilizing plaster cast Central venous access Age >= 75 History of VTE Family history of VTE Factor V Leiden Prothrombin [id number] Lupus anticoagulant Anticardiolipin antibodies Elevated serum homocysteine Heparin-induced thrombocytopenia Other congenital or acquired thrombophilia Stroke (< 1 month) Elective arthroplasty Hip, pelvis, or leg fracture Acute spinal cord injury (< 1 month) Prophylaxis Regimen: Total Risk Factor Score Risk Level Prophylaxis Regimen 0-1 Low Early ambulation 2 Moderate Order ONE of the following: *Sequential Compression Device (SCD) *Heparin 5000 units SQ BID 3-4 Higher Order ONE of the following medications: *Heparin 5000 units SQ TID *Enoxaparin/Lovenox 40 mg SQ daily (WT < 150 kg, CrCl > 30 mL/min) *Enoxaparin/Lovenox 30 mg SQ daily (WT < 150 kg, CrCl > 10-29 mL/min) *Enoxaparin/Lovenox 30 mg SQ BID (WT < 150 kg, CrCl > 30 mL/min) AND/OR *Sequential Compression Device (SCD) 5 or more Highest Order ONE of the following medications: *Heparin 5000 units SQ TID (Preferred with Epidurals) *Enoxaparin/Lovenox 40 mg SQ daily (WT < 150 kg, CrCl > 30 mL/min) *Enoxaparin/Lovenox 30 mg SQ daily (WT < 150 kg, CrCl > 10-29 mL/min) *Enoxaparin/Lovenox 30 mg SQ BID (WT < 150 kg, CrCl > 30 mL/min) AND *Sequential Compression Device (SCD) Assessment and Plan - Diagnosis (1) Post-term , 40-42 weeks of gestation Code(s): O48.0 - Post-term Status: Acute - Plan Admit. Cytotec 1 followed by oxytocin per hospital protocol
[2018-04-12 06:32] LABS: Baso % (Auto) 0.3 % (0.0-2.0); Eos # (Auto) 0.1 th/mm3 (0.0-0.4); Hematocrit 30.7 % (35.0-46.0); Hemoglobin 10.6 gm/dL (11.6-15.3); Lymph % (Auto) 26.6 % (9.0-44.0); Mean Corpuscular HGB Conc 34.6 % (32.0-36.0); Mean Corpuscular Hemoglobin 29.2 pg (27.0-34.0); Mean Corpuscular Volume 84.4 fL (80.0-100.0); Mean Platelet Volume 8.4 fL (7.0-11.0); Mono # (Auto) 0.5 th/mm3 (0.0-0.9); Mono % (Auto) 6.1 % (0.0-8.0); Neut # (Auto) 5.1 th/mm3 (1.8-7.7); Platelet Count 198 th/mm3 (150-450); Red Blood Count 3.64 mil/mm3 (4.00-5.30); Red Cell Distribution Width 13.8 % (11.6-17.2); White Blood Count 7.7 th/mm3 (4.0-11.0)
[2018-04-12 06:41] LABS: Amphetamine Urine With Conf Neg (Neg); Benzodiazepine Urine With Conf Neg (Neg)
[2018-04-12 06:48] LABS: Amorphous Sediment,Urine Rare /hpf; Bacteria,Urine Rare /hpf; Bilirubin,Urine Negative (Negative); Clarity,Urine Clear (Clear); Color,Urine Straw (Yellw/Straw); Glucose,Urine (UA) Negative (Negative); Leukocyte Esterase,Urine Small (Negative); Mucus,Urine Few /lpf (Occasional); Nitrite,Urine Negative (Negative); Specific Gravity,Urine 1.004 (1.002-1.035); Squamous Epithelial Cell,Urine 3 /hpf (0-5)
[2018-04-12] MEDS ORDERED: Penicillin G Potassium Inj 5,000,000 UNIT in Sodium Chloride 0.9% Inj 100 ML IV.SIG ONE (07:00)
[2018-04-12] MEDS ORDERED: Penicillin G Potassium Inj 2,500,000 UNIT in Sodium Chlor 0.9% Inj 100 ML IV.SIG SCH (11:00)
--- NOTE | 2018-04-12 12:00 | P.OBLABOR ---
Subjective Interval history: Patient seen and examined at bedside. 4 minute late decelerations seen on EFM with tachysystole. Patient confirmed frequent contractions. Patient was placed on oxygen via face mask. She had changed position to knee chest position. Objective Vital Signs: Vital Signs - 8 hr 04/12/18 05:40 04/12/18 07:15 04/12/18 10:12 Temperature 98.1 F 98.0 F Pulse Rate 78 94 H 78 Respiratory Rate 16 16 16 Blood Pressure 132/71 106/63 130/76 04/12/18 11:05 Temperature Pulse Rate 86 Respiratory Rate Blood Pressure Objective: Pelvic Exam per nursing: Cervix: mid position Dilatation: 2-3 cm Effacement: 60 Station: -2 Presentation: cephalic Membranes: intact Uterine Contractions: tachysystole FHT's: Category: 2 Baseline: 120s Reactive: yes Variability: moderate Decels: late deceleration Assessment and Plan - Plan 32 year-old female at 40 weeks, GBS positive, status post vaginal Cytotec at 7 AM. Patient found to be in tachycardia systole with 4 minute late deceleration. -Terbutaline SubQ administered. -Patient placed on 10L oxygen. Changed positions to knee chest position. -Patients contractions decreased. -EFM/[place]: Moderate variability. Returned to Cat 1 tracing. Good Accelerations. -GBS+: Patient still on PCN. Second dose Administered.
--- NOTE | 2018-04-12 14:10 | P.OBLABOR ---
Subjective Interval history: Patient seen and examined at bedside. Resting comfortably. Objective Vital Signs: Vital Signs - 8 hr 04/12/18 07:15 04/12/18 10:12 04/12/18 11:05 Temperature 98.1 F 98.0 F Pulse Rate 94 H 78 86 Respiratory Rate 16 16 Blood Pressure 106/63 130/76 04/12/18 12:25 04/12/18 12:30 Temperature 98.2 F Pulse Rate 107 H Respiratory Rate 18 Blood Pressure 128/66 Objective: Pelvic Exam: Cervix: posterior Dilatation: 4cm Effacement: 70 Station: -2 Presentation: cephalic Membranes: ruptured FHT's: Category: 1 Baseline: 130 bmp Reactive: yes Variability: moderate Decels: none Assessment and Plan - Plan 32 year-old female at 40 weeks, GBS positive, status post vaginal Cytotec at 7 AM, terbutaline at 11:10 AM. Cat 1 tracing. Reassuring. -Cat 1 tracing. Reassuring -AROM. Clear fluid. -Cervical Check: /-2 -Continue Active Labor Care. -GBS +. PCN given. -Recheck in one hour. -Discussed with Dr. Huggins.
[2018-04-12] MEDS ORDERED: Lidocaaine 1.5%/Epinephrine 1:200,000 PF Inj 5 ML Amp ONE (14:24)
[2018-04-12] MEDS ORDERED: Lidocaine PF 1% Inj 5 ML Vial ONE (14:24)
[2018-04-12] MEDS ORDERED: fentaNYL 2MCG-Bupiv 0.125% Epi 150 ML EPIDURAL ONE (14:25)
[2018-04-12] MEDS ORDERED: fentaNYL Citrate Inj 100 MCG/2 ML Ampul EPIDURAL ONE (14:55)
[2018-04-12] MEDS ORDERED: fentaNYL 2MCG-Bupiv 0.125% Epi 150 ML EPIDURAL PRN (14:55)
[2018-04-12] MEDS ORDERED: Oxytocin 30 Units/500ml Premix 30 UNITS/500 ML BAG IV.SIG PRN (15:22)
[2018-04-12] MEDS ORDERED: Measles/Mumps/Rubella Vaccine Inj 0.5 ML Vial SQ ONE (16:00)
[2018-04-12] MEDS ORDERED: Diphtheria/Tetanus/Pertussis Vaccine Inj 0.5 ML Syringe IM ONE (16:00)
--- NOTE | 2018-04-12 16:41 | P.OBLABOR ---
Subjective Interval history: Patient is a 32 year old at 41 weeks. Scalp electrode and IUPC placed at approximately 16:30. GENERAL: Well-nourished, well-developed patient. ABDOMEN/GI: Abdomen soft, non-tender, bowel sounds present, no rebound, no guarding Gravid to 41 weeks size GENITOURINARY: External Genitalia: intact and normal in appearance Dilatation: 50 cm Effacement: 80% Station: -2 Membranes: ruptured Uterine Contractions: q2-4min. FHT's: Category: 1 Baseline: 145 Reactive: + Variability: moderate Decels: none NEUROLOGICAL: Awake and alert. Motor and sensory grossly within normal limits. Five out of 5 muscle strength in all muscle groups. Normal speech. Objective Vital Signs: Vital Signs - 8 hr 04/12/18 10:12 04/12/18 11:05 04/12/18 12:25 Temperature 98.0 F Pulse Rate 78 86 107 H Respiratory Rate 16 Blood Pressure 130/76 04/12/18 12:30 04/12/18 14:35 04/12/18 14:50 Temperature 98.2 F Pulse Rate 83 79 Respiratory Rate 18 18 Blood Pressure 128/66 139/84 132/74 04/12/18 14:55 04/12/18 15:10 04/12/18 15:25 Temperature 98.5 F Pulse Rate 89 91 H 78 Respiratory Rate Blood Pressure 121/72 123/77 123/70 04/12/18 16:00 04/12/18 16:20 Temperature Pulse Rate 69 93 H Respiratory Rate 16 Blood Pressure 117/68 117/63 Assessment and Plan - Plan Patient is a 32 year old at 41 weeks. Category 1 tracing. Reassuring. AROM. Clear fluid. Cervical exam: 5/80/-2. GBS +. PCN. Recheck in one hour. Continue active labor care. Discussed with Dr. Huggins.
[2018-04-12] MEDS ORDERED: Oxytocin 30 Units/500ml Premix 30 UNITS/500 ML BAG IV.CONT PRN (18:17)
[2018-04-12] MEDS ORDERED: Bisacodyl 10 MG Supp RECTAL PRN (18:17)
[2018-04-12] MEDS ORDERED: Zolpidem Tartrate 5 MG Tablet PO PRN (18:17)
[2018-04-12] MEDS ORDERED: Acetaminophen 325 MG Tablet PO PRN (18:17)
[2018-04-12] MEDS ORDERED: Witch Hazel 50%/Glyderin 12.5% 40 Pad Jar RECTAL PRN (18:17)
[2018-04-12] MEDS ORDERED: Benzocaine 20% Top Spray 60 ML Can TOPICAL PRN (18:17)
--- NOTE | 2018-04-12 18:17 | P.OBDELI ---
Weeks Gestation: 40 Patient Started Active Labor: No Medical Induction of Labor: Yes Medical Induction Start Date: 04/12/18 Medical Induction Start Time: 06:17 Artificial Rupture of Membrane: Yes Artificial ROM Date: 04/12/18 Artificial ROM Time: 14:06 Anesthesia: None Vaginal Delivery: Normal Presentation: Occiput anterior Nuchal Cord: x1 Delayed Cord Clamping (45 sec): Yes Estimated blood loss (mL): 200 : Male Infant Male A Delivery Time: 18:02 Weight: 4.045 kg score (1 min): 7 score (5 min): 9 Additional Information: Delivered by Dr.La Dejesus Supervised by Dr. Huggins
[2018-04-12] MEDS: Penicillin G Potassium Inj 2,500,000 UNIT in Sodium Chlor 0.9% Inj 100 ML IV.SIG SCH (20:33)
[2018-04-12] MEDS: Senna/Docusate Sodium 8.6/50 MG Tablet PO SCH (22:59)
[2018-04-13] MEDS: Senna/Docusate Sodium 8.6/50 MG Tablet PO SCH ×2 (08:08→20:16)
--- NOTE | 2018-04-13 08:54 | P.PNOB ---
Subjective Interval history: Patient is a 32 year-old delivered at 41 weeks. Patient is day 1 after . AFVSS. Patient's pain is well-controlled. Patient reports eating and drinking without any nausea or vomiting. Patient reports minimal bleeding. Patient has passed gas and had a bowel movement. Patient is walking without lower extremity pain or shortness of breath. Patient reports desire for contraception via tubal ligation which she will discuss with her OB provider and is breast-feeding. Objective Vital Signs/I&O: Vital Signs 04/12/18 10:12 04/12/18 11:05 04/12/18 12:25 Temperature 98.0 F Pulse Rate 78 86 107 H Respiratory Rate 16 Blood Pressure 130/76 04/12/18 12:30 04/12/18 14:35 04/12/18 14:50 Temperature 98.2 F Pulse Rate 83 79 Respiratory Rate 18 18 Blood Pressure 128/66 139/84 132/74 04/12/18 14:55 04/12/18 15:10 04/12/18 15:25 Temperature 98.5 F Pulse Rate 89 91 H 78 Respiratory Rate Blood Pressure 121/72 123/77 123/70 04/12/18 16:00 04/12/18 16:20 04/12/18 16:40 Temperature 98.5 F Pulse Rate 76 93 H 63 Respiratory Rate 16 Blood Pressure 146/83 H 117/63 113/74 04/12/18 16:56 04/12/18 17:00 04/12/18 17:31 Temperature 98.8 F Pulse Rate 62 61 Respiratory Rate 18 Blood Pressure 137/82 04/12/18 17:36 04/12/18 17:56 04/12/18 18:02 Temperature Pulse Rate 67 74 114 H Respiratory Rate Blood Pressure 129/69 103/73 135/101 H 04/12/18 18:21 18 18:25 04/12/18 18:31 Temperature 98.6 F Pulse Rate 92 H 90 Respiratory Rate 20 18 Blood Pressure 135/77 124/63 04/12/18 18:55 04/12/18 19:00 04/12/18 19:10 Temperature Pulse Rate 81 74 73 Respiratory Rate 18 18 Blood Pressure 132/80 133/76 134/73 04/12/18 19:25 04/12/18 19:55 04/12/18 20:25 Temperature 98.3 F Pulse Rate 86 Respiratory Rate 18 18 18 Blood Pressure 150/75 H 04/13/18 00:00 04/13/18 08:00 Temperature 98.1 F 98.3 F Pulse Rate 66 80 Respiratory Rate 18 18 Blood Pressure 129/72 105/63 Result Diagrams: 04/12/18 05:50 Objective Remarks: GENERAL: Well-nourished, well-developed patient. CARDIOVASCULAR: Regular rate and rhythm without murmurs, gallops, or rubs. RESPIRATORY: Breath sounds equal bilaterally. No accessory muscle use. ABDOMEN/GI: Abdomen soft, non-tender. Fundus: Firm, non-tender at umbilicus. GENITOURINARY: Light to moderate bleeding. EXTREMITIES: No cyanosis or edema, non-tender, without signs of DVT. Medications and IVs: Active Medications Acetaminophen (Tylenol) 650 mg PO Q4H PRN PRN Reason: PAIN SCALE 1 TO 2 Al Hydroxide/Mg Hydroxide (Milk Of Magnesia Liq) 30 ml PO Q12H PRN PRN Reason: Mild Constipation Benzocaine (Americaine 20% Top [place]) 1 spray TOPICAL Q4H PRN PRN Reason: For Perineum Discomfort Bisacodyl (Dulcolax Supp) 10 mg RECTAL DAILY PRN PRN Reason: SEVERE CONSITIPATION Ephedrine Sulfate (Ephedrine/Ns Syringe) 10 mg IV.PUSH UNSCH PRN PRN Reason: SEE LABEL COMMENTS Stop: 04/13/18 14:55 Penicillin G Potassium 2,500, (000 unit/ Sodium Chloride) 100 mls @ 200 mls/hr IV.SIG Q4H [facility] Last Admin: 04/12/18 20:33 Dose: Not Given Fentanyl/Bupivacaine/Sodium Chlor (Fentanyl 2 Mcg-Bupiv 0.125% Epi) 150 mls @ 12 mls/hr EPIDURAL PRN PRN PRN Reason: for Labor Pain Oxytocin (Pitocin 30 Units/Ns 500 Ml Premix) 30 units in 500 mls @ 100 mls/hr IV.CONT UNSCH PRN PRN Reason: Heavy bleeding Ibuprofen (Motrin) 800 mg PO Q8H PRN PRN Reason: For Cramping Last Admin: 04/13/18 07:49 Dose: 800 mg Lactulose (Lactulose Liq) 30 ml PO DAILY PRN PRN Reason: SEVERE CONSITIPATION Miscellaneous Information (Misc Information) 1 each OTHER UNSCH PRN PRN Reason: SEE LABEL COMMENTS Stop: 04/13/18 14:55 Miscellaneous Information (Misc Information) 1 each OTHER UNSCH PRN PRN Reason: SEE LABEL COMMENTS Stop: 04/13/18 14:55 Naloxone HCl (Narcan Inj) 0.1 mg IV.PUSH Q2M PRN PRN Reason: for opiate reversal Ondansetron HCl (Zofran Odt) 4 mg PO Q6H PRN PRN Reason: NAUSEA OR VOMITING Oxycodone/Acetaminophen (Percocet 5/325 Mg) 1 tab PO Q4H PRN PRN Reason: PAIN SCALE 3 TO 5 Oxycodone/Acetaminophen (Percocet 5/325 Mg) 2 tab PO Q4H PRN PRN Reason: PAIN SCALE 6 TO 10 Senna/Docusate Sodium (Jessica-Colace) 1 tab PO BID [facility] Last Admin: 04/13/18 08:08 Dose: 1 tab Sennosides (Senokot) 17.2 mg PO Q12H PRN PRN Reason: Moderate Constipation Sodium Chloride (Ns Flush) 2 ml IV.FLUSH BID [facility] Last Admin: 04/12/18 22:59 Dose: Not Given Sodium Chloride (Ns Flush) 2 ml IV.FLUSH PRN PRN PRN Reason: FLUSH AFTER USING IV ACCESS Witch Antionette/Glycerin (Tucks Pads) 1 applicatio RECTAL QID PRN PRN Reason: HEMORRHOIDS Zolpidem Tartrate (Ambien) 5 mg PO HS PRN PRN Reason: SLEEP Assessment and Plan - Diagnosis (1) Vaginal delivery Code(s): O80 - Encounter for full-term uncomplicated delivery Status: Resolved (2) Post-term , 40-42 weeks of gestation Code(s): O48.0 - Post-term Status: Resolved - Plan Patient is a 32 year-old delivered at 41 weeks. Patient is day 1 after . Continue routine care. Motrin and Percocet when necessary for pain. Encourage OOB Pelvic rest for 6 weeks will need follow-up appointment at that time. Contraception: tubal ligation with OB provider. appropriately. Anticipate discharge tomorrow Discussed with Dr. Huggnis.
--- NOTE | 2018-04-13 08:54 | P.OBLABOR ---
Subjective Interval history: Patient is a 32 year-old delivered at 41 weeks. Patient is day 1 after . AFVSS. Patient's pain is well-controlled. Patient reports eating and drinking without any nausea or vomiting. Patient reports minimal bleeding. Patient has passed gas and had a bowel movement. Patient is walking without lower extremity pain or shortness of breath. Patient reports desire for contraception via tubal ligation which she will discuss with her OB provider and is breast-feeding. Objective Objective: Pelvic Exam: Cervix: [-] Dilatation: [-] Effacement: [-] Station: [-] Presentation: [-] Membranes: [intact or ruptured] Uterine Contractions: [-] FHT's: Category: [-] Baseline: [-] Reactive: [-] Variability: [-] Decels: [-] Assessment and Plan - Plan Patient is a 32 year old at 41 weeks. Category 1 tracing. Reassuring. AROM. Clear fluid. Cervical exam: 5/80/-2. GBS +. PCN. Recheck in one hour. Continue active labor care. Discussed with Dr. Huggins.
[2018-04-14] MEDS: Senna/Docusate Sodium 8.6/50 MG Tablet PO SCH (08:03)
--- NOTE | 2018-04-14 09:12 | P.OBLABOR ---
Subjective Interval history: Patient is a 32 year-old delivered at 41 weeks. Patient is day 2 after . AFVSS. Patient's pain is well-controlled. Patient reports eating and drinking without any nausea or vomiting. Patient reports minimal bleeding. Patient has passed gas and had a bowel movement. Patient is walking without lower extremity pain or shortness of breath. Patient reports desire for contraception via tubal ligation which she will discuss with her OB provider and is breast-feeding. She is ready to be discharged today. Patient initially declined receiving her RhoGam shot. Resident and attending were notified. Resident and nurse were at bedside, had an extensive discussion about the risks and benefits of receiving the RhoGam shot. Patient understood the risks and benefits, was able to verbalize her understanding thoroughly. Patient understood that without receiving the RhoGam shot that it would be detrimental to her future pregnancies, leading to inviable fetuses. Patient agreed to receiving the RhoGam shot after extensive education. Objective Vital Signs: Vital Signs - 8 hr 04/14/18 02:00 04/14/18 08:00 Temperature 98.1 F Pulse Rate 75 Respiratory Rate 20 20 Blood Pressure 121/63 Objective: Pelvic Exam: Cervix: [-] Dilatation: [-] Effacement: [-] Station: [-] Presentation: [-] Membranes: [intact or ruptured] Uterine Contractions: [-] FHT's: Category: [-] Baseline: [-] Reactive: [-] Variability: [-] Decels: [-] Assessment and Plan - Diagnosis (1) Vaginal delivery Code(s): O80 - Encounter for full-term uncomplicated delivery Status: Resolved (2) Post-term , 40-42 weeks of gestation Code(s): O48.0 - Post-term Status: Resolved - Plan Patient is a 32 year-old delivered at 41 weeks. Patient is day 1 after . Continue routine care. Motrin and Percocet when necessary for pain. Encourage OOB Pelvic rest for 6 weeks will need follow-up appointment at that time. Contraception: tubal ligation with OB provider. appropriately. Anticipate discharge tomorrow Discussed with Dr. Huggins.
--- NOTE | 2018-04-14 09:13 | P.PNOB ---
Subjective Interval history: Patient is a 32 year-old delivered at 41 weeks. Patient is day 2 after . AFVSS. Patient's pain is well-controlled. Patient reports eating and drinking without any nausea or vomiting. Patient reports minimal bleeding. Patient has passed gas and had a bowel movement. Patient is walking without lower extremity pain or shortness of breath. Patient reports desire for contraception via tubal ligation which she will discuss with her OB provider and is breast-feeding. She is ready to be discharged today. Patient initially declined receiving her RhoGam shot. Resident and attending were notified. Resident and nurse were at bedside, had an extensive discussion about the risks and benefits of receiving the RhoGam shot. Patient understood the risks and benefits, was able to verbalize her understanding thoroughly. Patient understood that without receiving the RhoGam shot that it would be detrimental to her future pregnancies, leading to inviable fetuses. Patient agreed to receiving the RhoGam shot after extensive education. Objective Vital Signs/I&O: Vital Signs 04/13/18 20:00 04/14/18 02:00 04/14/18 08:00 Temperature 98.8 F 98.1 F Pulse Rate 84 75 Respiratory Rate 18 20 20 Blood Pressure 117/72 121/63 Result Diagrams: 04/12/18 05:50 Objective Remarks: GENERAL: Well-nourished, well-developed patient. CARDIOVASCULAR: Regular rate and rhythm without murmurs, gallops, or rubs. RESPIRATORY: Breath sounds equal bilaterally. No accessory muscle use. ABDOMEN/GI: Abdomen soft, non-tender. Fundus: Firm, non-tender at umbilicus. GENITOURINARY: Light to moderate bleeding. EXTREMITIES: No cyanosis or edema, non-tender, without signs of DVT. Medications and IVs: Active Medications Acetaminophen (Tylenol) 650 mg PO Q4H PRN PRN Reason: PAIN SCALE 1 TO 2 Al Hydroxide/Mg Hydroxide (Milk Of Magnesia Liq) 30 ml PO Q12H PRN PRN Reason: Mild Constipation Benzocaine (Americaine 20% Top [place]) 1 spray TOPICAL Q4H PRN PRN Reason: For Perineum Discomfort Bisacodyl (Dulcolax Supp) 10 mg RECTAL DAILY PRN PRN Reason: SEVERE CONSITIPATION Fentanyl/Bupivacaine/Sodium Chlor (Fentanyl 2 Mcg-Bupiv 0.125% Epi) 150 mls @ 12 mls/hr EPIDURAL PRN PRN PRN Reason: for Labor Pain Oxytocin (Pitocin 30 Units/Ns 500 Ml Premix) 30 units in 500 mls @ 100 mls/hr IV.CONT UNSCH PRN PRN Reason: Heavy bleeding Ibuprofen (Motrin) 800 mg PO Q8H PRN PRN Reason: For Cramping Last Admin: 04/14/18 09:02 Dose: 800 mg Lactulose (Lactulose Liq) 30 ml PO DAILY PRN PRN Reason: SEVERE CONSITIPATION Naloxone HCl (Narcan Inj) 0.1 mg IV.PUSH Q2M PRN PRN Reason: for opiate reversal Ondansetron HCl (Zofran Odt) 4 mg PO Q6H PRN PRN Reason: NAUSEA OR VOMITING Oxycodone/Acetaminophen (Percocet 5/325 Mg) 1 tab PO Q4H PRN PRN Reason: PAIN SCALE 3 TO 5 Oxycodone/Acetaminophen (Percocet 5/325 Mg) 2 tab PO Q4H PRN PRN Reason: PAIN SCALE 6 TO 10 Senna/Docusate Sodium (Jessica-Colace) 1 tab PO BID [facility] Last Admin: 04/14/18 08:03 Dose: 1 tab Sennosides (Senokot) 17.2 mg PO Q12H PRN PRN Reason: Moderate Constipation Sodium Chloride (Ns Flush) 2 ml IV.FLUSH BID [facility] Last Admin: 04/14/18 08:03 Dose: Not Given Sodium Chloride (Ns Flush) 2 ml IV.FLUSH PRN PRN PRN Reason: FLUSH AFTER USING IV ACCESS Witch Antionette/Glycerin (Tucks Pads) 1 applicatio RECTAL QID PRN PRN Reason: HEMORRHOIDS Zolpidem Tartrate (Ambien) 5 mg PO HS PRN PRN Reason: SLEEP Assessment and Plan - Diagnosis (1) Vaginal delivery Code(s): O80 - Encounter for full-term uncomplicated delivery Status: Resolved (2) Post-term , 40-42 weeks of gestation Code(s): O48.0 - Post-term Status: Resolved - Plan Patient is a 32 year-old delivered at 41 weeks. Patient is day 2 after . Continue routine care. Motrin and Percocet when necessary for pain. Encourage OOB. Rhogram administered. After extensive counseling about benefits. Pelvic rest for 6 weeks will need follow-up appointment at that time. Contraception: tubal ligation with OB provider. appropriately. Anticipate discharge today. Discussed with Dr. JACOBS
[2018-04-14 11:44] VITALS: BP 131/62; PULSE 78; RESP 16; TEMP 96.6; O2SAT 96
== END 2018-04-14 18:16 | disposition home or self-care (01) ==
LOC: H2E 05:12 → H1EA 20:16
PROVIDERS: ADMIT Obstetrics & Gynecology; ATTEND Obstetrics & Gynecology